=== PATIENT | female | born 1995 | race Two or more races ===

== ENCOUNTER 2020-01-03 12:31 | Emergency (ER) | payer BC ==
[2020-01-03 12:41] VITALS: BP 123/71; PULSE 80; TEMP 99.3; BMI 23.2
--- NOTE | 2020-01-03 12:41 | PDOC ---
History of Present Illness - General Chief Complaint: Sore Throat Stated Complaint: SORE THROAT Time Seen by Provider: 01/03/20 12:37 History Source: Patient Exam Limitations: No Limitations - History of Present Illness Initial Comments: 01/03/20 12:37 24 y/o female with a recent negative COVID-19 test presents with sore throat. Feels like a ball stuck. Already on Z-pack. No fever or chills. Mild cough but no SOB. No N/V/d/C. Pt feels fine now but concerned throat can close up. Concerned for parents in house. Pt has quarantined herself for 2 weeks. Is this a multiple visit Asthma Patient?: No Past History - Past Medical History Allergies/Adverse Reactions: Allergies Allergy/AdvReac Type Severity Reaction Status Date / Time No Known Allergies Allergy Verified 01/03/20 12:37 Home Medications: Ambulatory Orders Albuterol Sulfate Inhaler - [Ventolin HFA Inhaler -] 1 puff .ROUTE ASDIR 01/03/20 Azithromycin 250 mg PO DAILY 01/03/20 Methylprednisolone [Medrol Dose Balta] 4 mg PO ASDIR 01/03/20 Review of Systems - Review of Systems Able to Perform ROS?: Yes Is the patient limited [place]ian proficient: No Constitutional: No: Chills, Fever HEENTM: Yes: Throat Pain Respiratory: Yes: Cough. No: Shortness of Breath Cardiac (ROS): No: Chest Pain All Other Systems: Reviewed and Negative *Physical Exam - Physical Exam General Appearance: Yes: Nourished, Appropriately Dressed, Apparent Distress HEENT: positive: EOMI, NANETTE, Normal ENT Inspection, Normal Voice. negative: Muffled/Hoarse voice, Pharyngeal Erythema, Tonsillar Exudate, Tonsillar Erythema, Sinus Tenderness Neck: positive: Trachea midline, Normal Thyroid. negative: Tender, Rigid, Supple Respiratory/Chest: positive: Lungs Clear, Normal Breath Sounds. negative: Chest Tender, Respiratory Distress Cardiovascular: positive: Regular Rhythm, Regular Rate, S1, S2. negative: Edema, JVD, Murmur Vascular Pulses: Femoral (R): 4+, Femoral (L): 4+, Carotid (R): 4+, Carotid (L): 4+, Dorsalis-Pedis (R): 4+, Doralis-Pedis (L): 4+ Gastrointestinal/Abdominal: positive: Normal Bowel Sounds, Flat, Soft. 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, Fully Oriented, Alert, Normal Mood/Affect, Normal Response, Motor Strength 02/08 ED Treatment Course - ADDITIONAL ORDERS Additional order review: 01/03/20 12:39 Reassured patient Continue antibiotic Isolate If worsen return to ER Discharge - Discharge Information Problems reviewed: Yes Clinical Impression/Diagnosis: Pharyngitis Qualifiers: Pharyngitis/tonsillitis etiology: unspecified etiology Qualified Code(s): J02.9 - Acute pharyngitis, unspecified Condition: Good Disposition: HOME - Admission No - Follow up/Referral - Patient Discharge Instructions Patient Printed Discharge Instructions: DI for Pharyngitis/Tonsillopharyngitis -- Adult, [facility]-Coronavirus Instructions, [facility] COVID-19 Isolation Protocol Additional Instructions: Continue current treatment Isolate If worsen return to ER - Post Discharge Activity
== END 2020-01-03 14:00 | disposition home or self-care (01) ==
LOC: FER 12:31
DX: J02.9 Acute pharyngitis, unspecified (principal)
CPT/HCPCS: 99282-25

== ENCOUNTER 2021-05-08 11:09 | Emergency (ER) | payer BC ==
[2021-05-08 11:43] VITALS: BP 128/85; PULSE 80; TEMP 99; BMI 23.3
== END 2021-05-08 12:40 | disposition home or self-care (01) ==
LOC: FER 11:09
DX: T78.40XA Allergy, unspecified, initial encounter (principal)
CPT/HCPCS: 99281-25